=== PATIENT | female | born 2000 | race Caucasian/White ===

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

== ENCOUNTER → 2022-06-03 13:14 | Outpatient (CLI) | payer BC, SELFPAY ==
[2022-06-03 14:13] LABS: Basophils # 0.1 K/mm3 (0-0.2); Basophils % 1.1 % (0.1-2.0); Chloride 110 mmol/L (98-107); Eosinophils # 0.2 K/mm3 (0.0-0.4); Eosinophils % 2.5 % (0.1-12.0); Hematocrit 39.6 % (37.0-47.0); Hemoglobin 13.1 g/dL (12.2-16.2); Lymphocytes # 2.3 K/mm3 (0.7-4.5); Lymphocytes % 36.5 % (10-50); Mean Corpuscular HGB Conc 33.1 g/dL (31.8-35.4); Mean Corpuscular Hemoglobin 27.6 pg (27.0-31.2); Mean Corpuscular Volume 83.6 fl (81-99); Monocytes # 0.4 K/mm3 (0.1-1.0); Neutrophils # 3.3 K/mm3 (1.8-7.8); Neutrophils % 52.9 % (37.0-80.0); Platelet Count 406 K/mm3 (142-424); Potassium 4.1 mmoL/L (3.5-5.1); Red Blood Count 4.73 M/mm3 (4.20-5.40); Red Cell Distribution Width 13.1 % (11.5-17.5); Sodium 142 mmol/L (136-145); White Blood Count 6.2 K/mm3 (4.8-10.8)
[2022-06-03 14:16] LABS: Alanine Aminotransferase 15 U/L (12-78); Albumin Level 4.9 g/dl (3.5-5.0); Albumin/Globulin Ratio 1.5 (1.1-1.8); Alkaline Phosphatase 98 U/L (38-126); Anion Gap 12.1 mEq/L (5-15); Aspartate Amino Transferase 27 U/L (14-36); Bilirubin,Total 1.1 mg/dl (0.2-1.3); Blood Urea Nitrogen 11 mg/dl (7-17); Carbon Dioxide 24 mmol/L (22.0-30.0); Estimated Glomerular Filt Rate 106 ml/min (>60); GFR (African American) 128 ML/MIN (>60); Globulin 3.3 g/dL (1.3-3.2); Total Protein,Serum 8.2 g/dl (6.3-8.2)
[2022-06-03 14:17] LABS: Calcium 9.4 mg/dl (8.4-10.2); Glucose 88 mg/dl (74-100)
[2022-06-03 15:45] LABS: Vitamin B12 543 pg/mL (239-931)
[2022-06-05 15:13] LABS: Tissue Transglutaminase IgA Ab <2 U/mL (0-3); Tissue Transglutaminase IgG Ab <2 U/mL (0-5)
[2022-06-09 18:09] LABS: F001-IgE Egg White <0.10 kU/L (Class 0); F002-IgE Milk <0.10 kU/L (Class 0); F003-IgE Codfish <0.10 kU/L (Class 0); F004-IgE Wheat <0.10 kU/L (Class 0); F010-IgE Sesame Seed <0.10 kU/L (Class 0); F013-IgE Peanut <0.10 kU/L (Class 0); F014-IgE Soybean <0.10 kU/L (Class 0); F024-IgE Shrimp <0.10 kU/L (Class 0); F256-IgE Walnut <0.10 kU/L (Class 0); F338-IgE Scallop <0.10 kU/L (Class 0)
== END ==
PROVIDERS: PCP Internal Medicine Adolescent Medicine; Visit Provider Nurse Practitioner Family
DX: R10.9 Unspecified abdominal pain (principal); R19.5 Other fecal abnormalities; G89.29 Other chronic pain
CPT/HCPCS: 36415; 80053; 82607; 83516; 85025; 86003; 86008

== ENCOUNTER 2022-07-03 08:29 | Day surgery (SDC) | payer BC, SELFPAY ==
[2022-06-20 13:20] VITALS: BMI 23.8
[2022-07-03] VITALS (7 sets, daily range): BP systolic 86–136; BP diastolic 37–78; PULSE 80–101; RESP 16–20; TEMP 36.2–36.7; O2SAT 95–100
[2022-07-03 08:53] LABS: Urine Pregnancy, HCG Qual. Negative (Negative)
--- NOTE | 2022-07-03 09:36 | EXP.ANES.CKL ---
[facility] Disclaimer: The information contained in this section may have been updated after the patient was seen, as this information can be updated by other users. Medical History History of gastroesophageal reflux (GERD) Irritable bowel syndrome (IBS) Surgical History History of tonsillectomy History of wisdom tooth extraction, class IV edentulism Family History Other Family history of diabetes mellitus type II Social History Smoking Status: Never smoker alcohol intake: never substance use type: denies use current occupational status: employed Travel in the last 8 weeks: None household members: family housing: house education level: college service: No caffeine: Yes special sarah needs: No agree to transfusion: No do you feel safe at home: Yes victim of physical abuse: No victim of emotional abuse: No victim of sexual abuse: No would you like helpful sources: No [facility] Anesthesia Checklist Patient Identification Patient Identification: Arm Band and Verbal (Name & ) Structural Data Admitted From: Home Planned Operative Procedure/s: EGD/Colonoscopy Consent for Planned Operative Procedure(s) Verified: Yes NPO Status Verified Time NPO: 00:00 Chart Verification Results Verified: CBC and HCG Additional verifications Anesthesia Reactions: No Hx Blood Transfusions: No Blood Transfusion Reaction: No Airway Assessment C-Spine Mobility Assessed: Yes TMJ Mobility Assessed: Yes Dentition: Good Dentition Neurological Assessment Level of Consciousness: Awake Hx Seizures: No Numbness or tingling in extremities: No Anesthesia Plan Anesthesia Risk discussed: Yes Anesthesia Plan: Verified ASA Class: I Anesthesia Type: MAC
--- NOTE | 2022-07-03 10:02 | HMH.SCOPE ---
Procedure: Date: 07/03/22 Patient Date of :: 2000 Procedure Performed:: EGD Indications:: 22 year old with abdominal pain, urgent desire to stool after meals Performing Provider:: Harshil Carrillo MD Referring Provider:: Trista Denis APRN Sedation:: See RN records Procedure:: The gastroscope was gently passed through the incisoral orifice into the oral cavity and under direct visualization the esophagus was intubated. The endoscope was passed down the esophagus, through the stomach, and into the duodenum. Color, texture, mucosa, and anatomy of the esophagus, stomach, and duodenum were carefully examined with the scope. Findings:: Oropharynx: normal Esophagus: normal EG Junction: intact at 35 cm Cardia: normal Fundus: normal Body: normal. biopsies obtained Antrum: normal Duodenal bulb: normal Duodenum (second and third portion): normal. biopsies obtained Recommendations:: Await pathology results Move forward to colonoscopy Complications:: None Estimated blood obtained (mL): 0
--- NOTE | 2022-07-03 10:04 | HMH.SCOPE ---
Procedure: Date: 07/03/22 Patient Date of :: 2000 Procedure Performed:: Colonoscopy Indications:: 22 year old with adominal pain, urgent desire to stool after meals Performing Provider:: Harshil Carrillo MD Referring Provider:: Trista Denis APRN Sedation:: See RN records Procedure:: After placing the patient in the left lateral decubitus position, the colonoscopy was gently inserted into the rectum and under direct visualization advanced to the cecum which was identified by transillumination in the right lower quadrant, identification of the ileocecal valve, appendiceal orifice, and cecal strap. Color, texture, mucosa, and anatomy of the colon were carefully examined with the scope. Findings:: The appearance of the colon was normal with a normal appearing vascular pattern. The examined terminal ileum appeared normal. Recommendations:: Reassuring examination Continue dicyclomine 20 mg before meals as needed Consider xifaxan 550 mg tid x 2 weeks for IBS-D Can also try IBGard (peppermint oil) 1-2 capsules tid as needed Follow up with refering provider Complications:: none Estimated blood obtained (mL): 0
== END 2022-07-03 10:50 | disposition home or self-care (01) ==
PROVIDERS: PCP Internal Medicine Adolescent Medicine; Visit Provider Internal Medicine
PROC: 0DJ08ZZ Inspection of Upper Intestinal Tract, Via Natural or Artificial Opening Endoscopic (ICD-10-PCS; CPT 43235; principal; 2022-07-03 09:30)
DX: K58.9 Irritable bowel syndrome, unspecified (principal); K92.1 Melena; R10.9 Unspecified abdominal pain; Z79.899 Other long term (current) drug therapy
CPT/HCPCS: 43239; 45378; 81025; J2704

== ENCOUNTER → 2022-08-27 06:42 | Outpatient (CLI) | payer BC, SELFPAY ==
--- NOTE | 2022-08-27 06:52 | XR_ITS ---
FINAL REPORT CLINICAL HISTORY: RUQ ABD PAIN FINDINGS: TWO-VIEW ABDOMEN There is a nonspecific, nonobstructive bowel gas pattern. There is a large amount of retained stool throughout the colon. No bowel dilation is identified. No abnormal calcification is seen. There is no free air. IMPRESSION: Large stool burden. Reviewed, Interpreted and Dictated by Chris Muñoz III, MD Transcribed by Briseida Herrera Authenticated and [facility]
--- NOTE | 2022-08-27 06:52 | US_ITS ---
FINAL REPORT CLINICAL HISTORY: RUQ ABDOMINAL PAIN FINDINGS: RIGHT UPPER QUADRANT ULTRASOUND Sonographic images of the right upper quadrant were obtained. The pancreas is partially obscured.The liver has an unremarkable appearance.The gallbladder appears normal without evidence of gallstones.The common duct is normal measuring 3 mm. Limited images of the right kidney are normal. IMPRESSION: No acute process. Reviewed, Interpreted and Dictated by Chris Muñoz III, MD Transcribed by Briseida Herrera Authenticated and [facility]
== END ==
PROVIDERS: PCP Internal Medicine Adolescent Medicine; Visit Provider Nurse Practitioner Family
DX: R10.11 Right upper quadrant pain (principal)
CPT/HCPCS: 74019; 76705

== ENCOUNTER → 2022-11-28 13:51 | Outpatient (CLI) | payer BC, SELFPAY ==
[2022-11-30 10:12] LABS: HSV 2 IgG, Type Spec <0.91 index (0.00-0.90)
[2022-11-30 11:33] LABS: HIV Screen 4th Generation wRfx Non Reactive (Non Reactive)
[2022-12-05 11:42] LABS: Hepatitis B Surface Antigen Negative; Hepatitis C Antibody Non Reactive; Rapid Plasma Reagin Ab Titer Non Reactive
== END ==
PROVIDERS: PCP Internal Medicine Adolescent Medicine; Visit Provider Obstetrics & Gynecology
DX: Z72.51 High risk heterosexual behavior (principal); Z11.4 Encounter for screening for human immunodeficiency virus [HIV]
CPT/HCPCS: 36415; 86593; 86695; 86703; 86762; 86790; 87340; 87380; G0432